=== PATIENT | male | born 1990 | race Caucasian/White ===

== ENCOUNTER 2018-05-18 13:18 | Emergency (ER) | payer BC ==
[2018-05-18] MEDS ORDERED: Acetaminophen 500 MG TAB ONE (14:38)
--- NOTE | 2018-05-18 14:47 | RAD ---
TWO VIEWS RIGHT FOREARM: Date: 05-18-18 History: Patient skateboarding and fell on right arm. FINDINGS: There is a slightly impacted fracture involving the right radial neck. No additional fracture is seen . There is no evidence of a dislocation. No other osseous abnormality. IMPRESSION: Mildly impacted fracture right radial neck. POS: [facility]
== END 2018-05-18 14:30 | disposition home or self-care (01) ==
LOC: ERS 13:18
DX: S52.131A Displaced fracture of neck of right radius, initial encounter for closed fracture (principal); V00.131A Fall from skateboard, initial encounter; Y93.51 Activity, roller skating (inline) and skateboarding
CPT/HCPCS: 24650